=== PATIENT | female | born 1985 | race Caucasian/White ===

== ENCOUNTER → 2017-03-19 | Outpatient (CLI) | payer MEDICAID ==
[~2017-03-19] MED LIST: AMITIZA24 MCG PO; CLARITIN10 MG PO; CORTEF20 MG PO; DITROPAN XL5 MG PO; ESSENTIAL DAIL1 EACH PO; FOSAMAX70 MG PO; GLYCOLAX527 GM PO; LAMISIL250 MG PO; LEXAPRO10 MG PO; PEPCID20 MG PO; REVIA50 MG PO; SEROQUEL200 MG PO; SYNTHROID200 MCG PO; TOPAMAX100 MG PO; TUMS500 MG PO; VITAMIN D31000 UNI1 PO
== END | disposition short-term general hospital (02) ==
LOC: CLVASC 11:30
DX: R60.0 Localized edema (principal)